=== PATIENT | female | born 1950 | race Caucasian/White ===

== ENCOUNTER → 2016-11-23 | Outpatient (CLI) | payer OTHER ==
[~2016-11-23] MED LIST: ALEVE PO; ASPIRIN81 M2 PO; CALCIUM + D PO; CALCIUM + VITAM1 TAB PO; FOSAMAX70 MG PO; PRAVACHOL20 MG PO; PROTONIX PO; TYLENOL PM PO; VITAMIN D1000 UNI2 PO
--- NOTE | ~2016-11-23 | MY11 ---
[facility] A Service of [facility] RADIOLOGY TEXT RESULTS PATIENT: COBY CALZADA LOCATION: [facility] : 54 UNIT #: [id number] AGE: [address]: Marcie Samuel APRN SEX: F ORDER DR: [id number] [facility] [address] [place], [place] [address] [id number] O MR#: [id number] Acc #: [id number] NAME: COBY CALZADA : 1950 SEX: F STUDY DATE/TIME: 11/23/2016 9:35 UNIT: [facility] ROOM: STUDY DESCRIPTION: MY Mammogram Screening Dig Barry Attending Physician: Marcie Samuel A.P.R.N. Ordering Physician: Marcie Samuel A.P.R.N. Primary Care Physician: Marcie Samuel A.P.R.N. MEDICAL IMAGING REPORT This report is preliminary unless electronic signature is present EXAM Bilateral digital screening mammogram with CAD INDICATION Breast cancer screening. 66-year-old asymptomatic female with no personal history of breast cancer. COMPARISONS November 13, 2014, May 01, 2013, May 05, 2012, April 20, 2011, April 20, 2010, April 14, 2009, April 08, 2008, February 27, 2007, February 28, 2006. FINDINGS There are scattered fibroglandular tissues. No suspicious findings are present. IMPRESSION No mammographic evidence of malignancy. Annual screening mammography and clinical breast exam are recommended. A result letter will be sent to the patient. Patients over the age of 40 are entered into a reminder system with target due date for the next mammogram. BIRADS: 1 Negative Dictated by... Venkata Izquierdo M.D. THIS IS AN ELECTRONICALLY VERIFIED REPORT Venkata Izquierdo M.D. at 11/23/2016 5:31 PM [facility] A Service [facility] RADIOLOGY TEXT RESULTS PATIENT: COBY CALZADA LOCATION: [facility] : 54 UNIT #: [id number] AGE: [address]: Marcie Samuel APRN SEX: F ORDER DR: KIMBERLY/adali TD: 11/23/2016 12:27 JOB #: [id number] MEDICAL IMAGING REPORT Page 1 of 1 COPY
--- NOTE | ~2016-11-23 | BD1 ---
[facility] A Service of [facility] RADIOLOGY TEXT RESULTS PATIENT: COBY CALZADA LOCATION: [facility] : 54 UNIT #: [id number] AGE: [address]: Marcie Samuel APRN SEX: F ORDER DR: [id number] [facility] [address] [place], [place] [address] [id number] O MR#: [id number] Acc #: [id number] NAME: COBY CALZADA : 1950 SEX: F STUDY DATE/TIME: 11/23/2016 9:45 UNIT: [facility] ROOM: STUDY DESCRIPTION: BD Dexa Bone Dens 1+ Site Attending Physician: Marcie Samuel A.P.R.N. Ordering Physician: Marcie Samuel A.P.R.N. Primary Care Physician: Marcie Samuel A.P.R.N. MEDICAL IMAGING REPORT This report is preliminary unless electronic signature is present EXAM DXA scan, 11/23/2016. HISTORY Status post menopause with no hormone replacement therapy. Osteopenia. Hysterectomy with removal of both ovaries. Arthritis. Family history of osteoporosis in mother. Smoking history. FINDINGS Bone mineral density in the lumbar spine from L1-L4 was 0.807 g/cm2, which is 2.2 standard deviations below the mean when compared to the young adult reference population which is characteristic of osteopenia. This is 0.5 standard deviations below the mean when compared to the age-matched population. Compared with 11/13/2014, there has been an increase in bone mineral density in the lumbar spine of 2.7%. Bone mineral density in the left femoral neck was 0.612 g/cm2, which is 2.1 standard deviations below the mean when compared to the young adult reference population which is characteristic of osteopenia. This is 0.7 standard deviations below the mean when compared to the age-matched population. Compared with 11/13/2014, there has been an increase in bone mineral density in the left hip of 6.7%. IMPRESSION Bone mineral density in the lumbar spine and the left hip characteristic of osteopenia. Compared with 11/13/2014, there has been an increase in bone mineral density in the lumbar spine and the left hip. Dictated by... Joaquín Magdaleno M.D. [facility] A Service of [facility] RADIOLOGY TEXT RESULTS PATIENT: COBY CALZADA [id number] : 54 UNIT #: [id number] AGE: [address]: Marcie Samuel APRN SEX: F ORDER DR: THIS IS AN ELECTRONICALLY VERIFIED REPORT Joaquín Magdaleno M.D. at 11/24/2016 8:04 AM ANUJA/adali TD: 11/23/2016 11:48 JOB #: [id number] MEDICAL IMAGING REPORT Page 1 of 1 COPY
== END | disposition home or self-care (01) ==
LOC: CWCC 09:08
DX: Z13.820 Encounter for screening for osteoporosis (principal); Z12.31 Encounter for screening mammogram for malignant neoplasm of breast; M85.89 Other specified disorders of bone density and structure, multiple sites
CPT/HCPCS: 77080; G0202